=== PATIENT | male | born 1945 | race Caucasian/White ===

== ENCOUNTER 2019-02-15 06:43 | Day surgery (SDC) | payer MEDICARE ==
[2019-02-06 11:27] LABS: CREATININE 0.8 mg/dL (0.5-1.5); POTASSIUM 4.8 mmol/L (3.5-5.1)
[2019-02-06 11:28] LABS: BASOPHILS % (AUTO) 0.6 % (0.0-5.0); EOSINOPHILS % (AUTO) 0.9 % (0.0-8.0); LYMPHOCYTES % (AUTO) 14.7 % (21.0-51.0); MEAN CORPUSCULAR HEMOGLOBIN 31.5 pg (27.0-33.0); MEAN CORPUSCULAR HGB CONC 34.1 g/dL (32.0-36.0); MEAN CORPUSCULAR VOLUME 92.4 fL (79-99); MONOCYTES % (AUTO) 7.6 % (3.0-13.0); NEUTROPHILS % (AUTO) 76.2 % (40.0-77.0); NUCLEATED RED BLOOD CELLS 0.1 % (0.0-0.19); PLATELET COUNT (AUTO) 251 K/uL (130-400); RED BLOOD CELL COUNT(AUTO) 4.76 MIL/uL (4.50-6.20); RED CELL DISTRIBUTION WIDTH 13.6 % (11.0-15.5); WHITE BLOOD COUNT (AUTO) 6.2 K/uL (4.8-10.8)
[2019-02-06 11:53] VITALS: BP 167/88
[~2019-02-15] VITALS: Ht 170.2 cm; Wt 89.9 kg
[2019-02-15] VITALS (16 sets, daily range): BP systolic 131–180; BP diastolic 66–88
[~2019-02-15 06:43] MED LIST: CHOL100046 PO; HYDR-4064 PO; PRAV40TA3 PO; TAMS0.4C32 PO
[2019-02-15] MEDS ORDERED: LACTATED RINGERS 1000ML 1,000 ML IV ONE (07:20)
[2019-02-15] MEDS ORDERED: SUCCINYLCHOLINE 200MG/10ML SYR ONE (07:24)
[2019-02-15] MEDS ORDERED: LIDOCAINE PF 2% 5ML ABBOJECT ONE (07:24)
[2019-02-15] MEDS ORDERED: PROPOFOL 10 MG/ML 20ML VIAL IV ONE (07:25)
[2019-02-15] MEDS ORDERED: FENTANYL CITRATE PF 50 MCG/1 ML 2ML VIAL ONE (07:25)
[2019-02-15] MEDS ORDERED: ROCURONIUM 10MG/1ML SYR 10 MG/ML ML ONE (07:25)
[2019-02-15] MEDS ORDERED: BUPIVACAINE/EPI/PF 0.25% 30ML VIAL IJ ONE (07:32)
[2019-02-15] MEDS ORDERED: BACITRACIN 50,000 UNIT VIAL ONE (07:32)
[2019-02-15] MEDS ORDERED: GENTAMICIN SULFATE 80 MG/2 ML VIAL ONE (07:32)
[2019-02-15] MEDS ORDERED: LIDOCAINE 1%-EPI 1:100,000 20 ML VIAL IJ ONE (07:32)
[2019-02-15] MEDS ORDERED: METHYLENE BLUE 5 MG/ML AMP ONE (07:32)
[2019-02-15] MEDS ORDERED: SUCCINYLCHOLINE CHLORIDE 20 MG/ML 10 ML VIAL ONE (07:33)
[2019-02-15] MEDS ORDERED: CEFAZOLIN SODIUM 1 GM VIAL ONE (07:38)
[2019-02-15] MEDS ORDERED: MIDAZOLAM HCL 1 MG/ML 2ML VIAL ONE (07:57)
[2019-02-15] MEDS: CEFAZOLIN SODIUM 1 GM VIAL ONE ×2 (08:15→08:23)
[2019-02-15] MEDS ORDERED: EPHEDRINE SULFATE 50 MG/ML AMPULE ONE (08:24)
[2019-02-15] MEDS ORDERED: SODIUM CHLORIDE 0.9% 10 ML VIAL ONE (08:55)
[2019-02-15] MEDS ORDERED: BACITRACIN 28.4 GM OINT TP ONE (09:11)
[2019-02-15] MEDS ORDERED: NEOSTIGMINE 5MG/5ML SYR IV ONE (09:33)
[2019-02-15] MEDS ORDERED: GLYCOPYRROLATE 1 MG/5 ML SYRINGE ONE (09:33)
[2019-02-15] MEDS ORDERED: LABETALOL HCL 5 MG/ML 20ML VIAL IV ONE (10:00)
[2019-02-15] MEDS: LABETALOL 20 MG/4 ML DISP.SYRIN IV ONE ×2 (10:05→10:16)
== END 2019-02-15 11:34 | disposition home or self-care (01) ==
LOC: DAH 06:43
PROVIDERS: ATTEND Plastic Surgery
DX: C44.311 Basal cell carcinoma of skin of nose (principal); L71.1 Rhinophyma; E78.00 Pure hypercholesterolemia, unspecified; M19.90 Unspecified osteoarthritis, unspecified site; F12.90 Cannabis use, unspecified, uncomplicated; Z79.2 Long term (current) use of antibiotics; Z79.899 Other long term (current) drug therapy; Z72.89 Other problems related to lifestyle; Z87.01 Personal history of pneumonia (recurrent); Z98.890 Other specified postprocedural states; Z88.8 Allergy status to other drugs, medicaments and biological substances; Z82.49 Family history of ischemic heart disease and other diseases of the circulatory system
CPT/HCPCS: 11642; 36415; 80048; 85025; 88307; 88331; 88332 ×2; A4215; A4221; A4222; A4223; A4600; A4606; A4663; A6260 ×2; J0330; J0690 ×2; J1580; J2001; J2250; J2704; J2710; J3010; J3490 ×4; J7030; J7120; Q9968